=== PATIENT | male | born 1965 | race Caucasian/White ===

== ENCOUNTER 2016-10-07 08:56 | Observation (INO) | payer OTHER ==
[~2016-10-07] VITALS: Ht 188 cm; Wt 111.9 kg
[~2016-10-07 08:56] MED LIST: ASPIR-LOW81 MG PO; ATORVASTATIN CA40 MG PO; CLOPIDOGREL75 MG PO; GLIPIZIDE10 MG PO; LISINOPRIL10 MG PO; LISINOPRIL5 MG PO; LO-DOSE ASPIRIN81 M2 PO; METFORMIN HCL500 MG PO; METOPROLOL SUCC50 MG PO; METOPROLOL TART25 MG PO; NITROSTAT0.4 MG SL; NOHOMEMEDS
[2016-10-07 10:19] LABS: HEMATOCRIT 49.5 % (38.0-50.0); MCHC 34.3 G/DL (30.0-36.0); MCV 87.3 FL (86-99); MEAN PLAT.VOLUME 10.8 uM^3 (9.0-12.4); PLATELET COUNT 233 K/uL (156-360); RBC DIS.WIDTH-CV 11.6 % (11.8-14.6); RBC DIS.WIDTH-SD 37.1 % (39-53); RED BLOOD COUNT 5.67 M/uL (4.00-5.50); WHITE BLOOD COUNT 8.1 K/uL (4.1-10.2)
[2016-10-07 10:26] LABS: D-DIMER ELISA 0.25 mg/L FEU (< 0.57)
[2016-10-07 10:29] LABS: CHLORIDE 95 mEq/L (99-109); POTASSIUM 4.3 mEq/L (3.7-5.4); SODIUM 130 mEq/L (136-147)
[2016-10-07 10:32] LABS: ANION GAP 16 MEQ/L (2-14)
[2016-10-07 10:33] LABS: TOTAL BILIRUBIN 0.4 mg/dL (0.0-1.0)
[2016-10-07 10:34] LABS: ALKALINE PHOSPHATASE 94 IU/L (3-129)
[2016-10-07 10:35] LABS: GFR ESTIMATE (CALCULATED) > 59 mL/min/
[2016-10-07 10:36] LABS: UREA NITROGEN (BUN) 12 mg/dL (9-23)
[2016-10-07 10:38] LABS: LIPASE 43 U/L (1.0-51.0); TROP-I INTERPRETATION NEGATIVE; TROPONIN-I < 0.01 ng/mL (0.0-0.30)
[2016-10-07 10:45] LABS: GLUCOSE 584 mg/dL (70-99)
[2016-10-07] MEDS ORDERED: TRAZODONE HCL50 MG PO (11:41)
[2016-10-07] MEDS ORDERED: PLAVIX75 MG PO (11:42)
[2016-10-07] MEDS ORDERED: METOPROLOL SUCC50 MG PO (11:42)
[2016-10-07 13:35] VITALS: BP 134/85
[2016-10-07 13:40] LABS: Estimated Average Glucose 404 mg/dL (70-123)
[2016-10-07 14:13] LABS: HEMOGLOBIN A1c (GLYCOHEMOGLOB) 15.7 % HGB (Below 5.7)
[2016-10-07 14:41] LABS: HDL CHOLESTEROL 33 MG/DL (Desirable>=40); NON-HDL CHOLESTEROL 194 mg/dL (Desirable<160); TOTAL CHOLESTEROL 227 mg/dL (Desirable<200); TRIGLYCERIDES 703 MG/DL (Normal: <150)
[2016-10-07 15:28] VITALS: BP 130/82
[2016-10-07 16:22] LABS: TROP-I INTERPRETATION NEGATIVE; TROPONIN-I < 0.01 ng/mL (0.0-0.30)
[2016-10-07 20:28] VITALS: BP 123/72
[2016-10-07 21:41] LABS: POINT-OF-CARE METER ID UU14162513
[2016-10-07 22:53] LABS: TROP-I INTERPRETATION NEGATIVE; TROPONIN-I 0.01 ng/mL (0.0-0.30)
[2016-10-08 00:27] VITALS: BP 118/65
[2016-10-08 02:19] LABS: POINT-OF-CARE METER ID UU14162513
[2016-10-08 04:39] LABS: POINT-OF-CARE METER ID UU13113831
[2016-10-08 04:51] VITALS: BP 137/84
[2016-10-08 06:56] LABS: POINT-OF-CARE METER ID UU13113831
[2016-10-08 08:49] LABS: POINT-OF-CARE METER ID UU13113700
[2016-10-08 09:00] VITALS: BP 109/64
[2016-10-08 10:25] LABS: AMPHETAMINES QUANT VALUE 0 NG/ML; BARBITUATES QUANT VALUE 0 NG/ML; BENZODIAZEPINES QUANT VALUE 0 NG/ML; BENZODIAZEPINES, URINE SCREEN Negative (200 ng/mL); MARIJUANA QUANT VALUE 0 NG/ML; OPIATES QUANTITATIVE VALUE 0 NG/ML; PHENCYCLIDINE QUANT VALUE 0 NG/ML
[2016-10-08] MEDS ORDERED: ATORVASTATIN CA40 MG PO (10:51)
[2016-10-08] MEDS ORDERED: ASPIR-LOW81 MG PO (10:51)
== END 2016-10-08 12:10 | disposition home or self-care (01) ==
LOC: EME 08:56 → 5WEST 12:27 → EDOF 12:27 → 5WEST 13:32
PROVIDERS: Emergency Medicine; Internal Medicine
DX: R07.9 Chest pain, unspecified (principal); I25.10 Atherosclerotic heart disease of native coronary artery without angina pectoris; Z95.5 Presence of coronary angioplasty implant and graft; I25.2 Old myocardial infarction; I10 Essential (primary) hypertension; F17.200 Nicotine dependence, unspecified, uncomplicated; Z91.14 Patient's other noncompliance with medication regimen; E11.65 Type 2 diabetes mellitus with hyperglycemia; E78.5 Hyperlipidemia, unspecified; E66.9 Obesity, unspecified
CPT/HCPCS: 80053; 80061; 80306 90; 82948; 83036; 83690; 84443; 84484; 85027; 85379; 93005; 99202; 99281; 99285; G0378; J1650; J1815; J2270; J7030